=== PATIENT | female | born 1955 ===

== ENCOUNTER 2017-07-11 10:05 | Emergency (ER) | payer MEDICARE, MEDICAID ==
[2017-07-11 10:19] VITALS: BMI 30.4
[2017-07-11] MEDS ORDERED: Albuterol-Ipratrop 3 mg / 0.5 (3 ml) UD IH STA (10:43)
--- NOTE | 2017-07-11 10:45 | ED PDOC ---
HPI: CCC, URI, Sore Throat Time Seen by Provider: 07/11/17 10:32 Chief Complaint (Nursing): Cough, Cold, Congestion History Per: Patient Onset/Duration Of Symptoms: Days (2) Current Symptoms Are (Timing): Still Present Associated Symptoms: Cough. denies: Sputum Severity: Moderate Additional Complaint(s): Non productive cough assoc with SOB x 2 days. No fever or chest pain. Past Medical History Vital Signs: Last Vital Signs Temp 98.9 F 07/11/17 10:19 Pulse 74 07/11/17 10:19 Resp 22 07/11/17 10:19 BP 122/80 07/11/17 10:19 Pulse Ox 100 07/11/17 10:45 - Medical History PMH: Anxiety, Arthritis, Asthma, Depression, HTN, Hyperlipidemia Denies: Chronic Kidney Disease - Surgical History Surgical History: Denies: Pacemaker - Family History Family History: States: Unknown Family Hx - Home Medications Home Medications: Ambulatory Orders Medication Instructions Recorded Aripiprazole [Abilify] 2 mg PO DAILY 09/02/14 Carvedilol [Coreg] 6.25 mg PO DAILY 09/02/14 Escitalopram [Lexapro] 10 mg PO DAILY 09/02/14 Isosorbide Mononitrate [Imdur] 60 mg PO DAILY 09/02/14 Lisinopril/Hydrochlorothiazide 12.5 - 20 mg PO DAILY 09/02/14 [Lisinopril-Hydrochlorothiazide 12.5 mg-20 mg] Meclizine [Antivert] 12.5 mg PO DAILY 09/02/14 Omeprazole [Prilosec] 20 mg PO DAILY 09/02/14 amLODIPine [Norvasc] 5 mg PO DAILY 09/02/14 LORazepam [Ativan] 2 mg PO TID 12/02/14 Oxycodone HCl/Acetaminophen 1 tab PO .Q4-6 PRN 12/02/14 [Percocet 325 mg-5 mg] Rosuvastatin Calcium [Crestor] 20 mg PO HS 12/02/14 Zolpidem Tartrate [Ambien] 10 mg PO HS 12/02/14 Cephalexin [Keflex] 500 mg PO Q6 #40 cap 12/24/14 Azithromycin [Zithromax] 250 mg PO DAILY #6 tab 07/11/17 Prednisone 50 mg PO DAILY #5 tab 07/11/17 - Allergies Allergies/Adverse Reactions: Allergies Allergy/AdvReac Type Severity Reaction Status Date / Time Unobtainable Allergy Verified 07/11/17 10:42 Review of Systems ROS Statement: Except As Marked, All Systems Reviewed And Found Negative Constitutional: Negative for: Fever Respiratory: Positive for: Cough, Shortness of Breath. Negative for: Sputum Physical Exam - Reviewed Nursing Documentation Reviewed: Yes Vital Signs Reviewed: Yes - Physical Exam Appears: Positive for: Non-toxic, No Acute Distress Head Exam: Positive for: ATRAUMATIC, NORMAL INSPECTION, NORMOCEPHALIC Skin: Positive for: Normal Color, Warm, DRY Eye Exam: Positive for: EOMI, Normal appearance, PERRL ENT: Positive for: Normal ENT Inspection Neck: Positive for: Normal, Painless ROM Cardiovascular/Chest: Positive for: Regular Rate, Rhythm Respiratory: Positive for: Rhonchi, Wheezing. Negative for: Respiratory Distress Gastrointestinal/Abdominal: Positive for: Normal Exam, Soft Back: Positive for: Normal Inspection Extremity: Positive for: Normal ROM Neurologic/Psych: Positive for: Alert, Oriented - ECG O2 Sat by Pulse Oximetry: 100 Disposition - Clinical Impression Clinical Impression: Bronchitis - Patient ED Disposition Is Patient to be Admitted: No Counseled Patient/Family Regarding: Studies Performed, Diagnosis, Need For Followup, Rx Given - Disposition Referrals: [facility] [Outside] Disposition: Routine/Home Disposition Time: 13:16 Condition: FAIR Prescriptions: Azithromycin [Zithromax] 250 mg PO DAILY #6 tab Prednisone 50 mg PO DAILY #5 tab Instructions: Acute Bronchitis Forms: [employer] (Austrian)
[2017-07-11] MEDS ORDERED: Albuterol-Ipratrop 3 mg / 0.5 (3 ml) UD ONE (10:48)
--- NOTE | 2017-07-11 11:26 | RAD ---
HISTORY: cough COMPARISON: Chest radiographs 06/23/2017. TECHNIQUE: Chest PA and lateral FINDINGS: LUNGS: No active pulmonary disease. PLEURA: No significant pleural effusion identified. No pneumothorax apparent. CARDIOVASCULAR: Normal. OSSEOUS STRUCTURES: No significant abnormalities. VISUALIZED UPPER ABDOMEN: Mammillation of the right hemidiaphragm is reiterated. OTHER FINDINGS: None. IMPRESSION: No interval acute cardiopulmonary disease appreciated.
[2017-07-11 14:53] VITALS: BP 126/78; PULSE 78; RESP 19; TEMP 97; O2SAT 98
== END 2017-07-11 14:54 | disposition home or self-care (01) ==
LOC: H.ER 10:05
DX: J40 Bronchitis, not specified as acute or chronic (principal); J45.909 Unspecified asthma, uncomplicated; I10 Essential (primary) hypertension; Z86.59 Personal history of other mental and behavioral disorders; E78.5 Hyperlipidemia, unspecified